=== PATIENT | male | born 1955 | race Caucasian/White ===

== ENCOUNTER → 2016-12-08 | Outpatient (CLI) | payer BC ==
[~2016-12-08] MED LIST: ASPIRIN LO-DOSE81 MG PO; CHLOR-TRIMETON4 MG PO; FLEXERIL10 MG PO; LEVOTHROID (S100 MCG PO; LIPITOR20 M1 PO; ZANTAC300 MG PO
== END | disposition disaster alternative care site (69) ==
LOC: GRAD 11:43
DX: C20 Malignant neoplasm of rectum (principal); R07.9 Chest pain, unspecified; G62.2 Polyneuropathy due to other toxic agents; D70.1 Agranulocytosis secondary to cancer chemotherapy; R91.1 Solitary pulmonary nodule; K76.89 Other specified diseases of liver; Z98.890 Other specified postprocedural states; Z92.21 Personal history of antineoplastic chemotherapy
CPT/HCPCS: Q9967